=== PATIENT | male | born 1940 | race Two or more races ===

== ENCOUNTER 2019-11-05 18:08 | Emergency (ER) | payer MEDICARE ==
[~2019-11-05] VITALS: Ht 177.8 cm; Wt 72.6 kg
--- NOTE | 2019-11-05 18:26 | NUR ---
[facility] TO ER, AFTER HE ASKED FOR HELP TO THE PARAMEDICS, HE DOES NO KNOW WHERE IS HE IS AND APPEARS TO BE LOST. HE STATES HE LIVES IN A JAIL? HE DOES NOT KNOW HIS . REPORT GIVEN TO DR. ROBINS
--- NOTE | 2019-11-05 18:27 | NUR ---
THE PATIENT DENIES PAIN OR SOB ON ASSESSMENT
--- NOTE | 2019-11-05 18:27 | NUR ---
SITTER 1: 1 - WITH THE PATIENT
[2019-11-05 18:55] LABS: BASOPHILS # (AUTO) 0.1 /CMM (0.0-0.2); BASOPHILS % (AUTO) 1.2 % (0.0-2.0); EOSINOPHILS % (AUTO) 6.2 % (0.0-6.0); HEMATOCRIT 40 % (39-51); HEMOGLOBIN 13.2 g/dL (13.5-17.5); LYMPHOCYTES # (AUTO) 2.4 /CMM (0.8-4.8); LYMPHOCYTES % (AUTO) 32.3 % (20.0-44.0); MEAN CORPUSCULAR HGB CONC 33 g/dl (31.0-36.0); MEAN CORPUSCULAR VOLUME 91 fL (80-96); MONOCYTES # (AUTO) 0.8 /CMM (0.1-1.30); MONOCYTES % (AUTO) 10.4 % (2.0-12.0); NEUTROPHILS # (AUTO) 3.8 /CMM (1.8-8.9); NEUTROPHILS % (AUTO) 49.9 % (43.0-81.0); PLATELET COUNT (AUTO) 256 /CMM (150-450); RED BLOOD CELL COUNT(AUTO) 4.44 MIL/uL (4.5-6.0); WHITE BLOOD COUNT (AUTO) 7.6 K/uL (4.3-11.0)
[2019-11-05 19:06] LABS: ALCOHOL, BLOOD < 3 mg/dL (0-0); CALCIUM, SERUM 8.8 mg/dL (8.5-10.1); CREATININE 1.8 mg/dL (0.6-1.3); MAGNESIUM 2.3 mg/dL (1.8-2.4); POTASSIUM 3.9 mmol/L (3.5-5.1)
[2019-11-05 19:12] LABS: ALBUMIN 3.7 g/dL (3.4-5.0); BILIRUBIN,DIRECT 0.1 mg/dL (0.0-0.2); BILIRUBIN,TOTAL 0.4 mg/dL (0.2-1.0); TOTAL PROTEIN, SERUM 7.6 g/dL (6.4-8.2)
--- NOTE | 2019-11-05 19:17 | NUR ---
REPORT TO CASE ASSISTANT NURSE JACKIE MEYER FOR [facility].
--- NOTE | 2019-11-05 19:33 | NUR ---
URINE COLLECTED AND SENT TO THE LAB
[2019-11-05 19:45] LABS: APPEARANCE,URINE Clear (CLEAR); BILIRUBIN,URINE Negative (NEGATIVE); BLOOD, URINE Negative Ery/uL (NEGATIVE); COLOR,URINE Yellow (YELLOW); KETONES,URINE Negative (NEGATIVE); LEUKOCYTE ESTERASE ,URINE Negative (NEGATIVE); NITRITE, URINE Negative (NEGATIVE); PROTEIN,URINE Negative (NEGATIVE); UGLUCOSE Negative (NEGATIVE)
--- NOTE | 2019-11-05 19:58 | NUR ---
PAGED MERLYN TO READ IMAGING, "BEING READ RIGHT NOW"
[2019-11-05 20:14] LABS: THYROID STIMULATING HORMONE 3.093 uIU/mL (0.358-3.74)
--- NOTE | 2019-11-05 20:45 | NUR ---
pt is medcially clear for D/C per md. pt's was met at the lobby. Written and verbal after care instructions given to the w/ understanding. IV removed. Catheter intact and site benign. Pressure and 4x4 applied to site. No bleeding noted. pt was assisted to the family's car via w/c in stable codition.
[2019-11-05 20:49] VITALS: BP 143/77
== END 2019-11-05 20:51 | disposition home or self-care (01) ==
LOC: ER 18:12 → EDBD 18:12 → ER 20:51
DX: F03.90 Unspecified dementia, unspecified severity, without behavioral disturbance, psychotic disturbance, mood disturbance, and anxiety (principal); D64.9 Anemia, unspecified; N28.9 Disorder of kidney and ureter, unspecified; R41.0 Disorientation, unspecified
CPT/HCPCS: 36415; 70450-TC; 71045-TC; 80048-TC; 80076-TC; 80305; 81000-TC; 82962-TC; 83605-TC; 83735-TC; 84439-TC; 84443-TC; 84484-TC; 85025-TC; 85730-TC; 87040-TC; 87086-TC; G0480